=== PATIENT | female | born 1980 | race Caucasian/White ===

== ENCOUNTER 2021-12-18 23:34 | Emergency (ER) | payer OTHER ==
[~2021-12-18] VITALS: Ht 175.3 cm; Wt 100.0 kg
[2021-12-18] MEDS ORDERED: CLINDAMYCIN300 M1 PO (23:56)
[2021-12-18] MEDS ORDERED: HYDROCO/APAP1 TA9 PO (23:56)
[2021-12-19 00:05] VITALS: BP 137/90
== END 2021-12-19 00:10 | disposition home or self-care (01) | DRG 158 ==
LOC: ED 23:34
DX: K08.89 Other specified disorders of teeth and supporting structures (principal); Z94.84 Stem cells transplant status